=== PATIENT | male | born 1970 | race Caucasian/White ===

== ENCOUNTER 2020-12-30 17:07 | Emergency (ER) | payer OTHER ==
[2020-12-30 17:18] VITALS: PULSE 96
[2020-12-30] MEDS ORDERED: HYDROcodone/APAP 5-325MG 1 EACH TAB PO STA (17:35)
--- NOTE | 2020-12-30 17:53 | ED ---
General Adult HPI - General Chief complaint: Shortness of Breath Stated complaint: Flipped tractor, broken ribs Time Seen by Provider: 12/30/20 17:22 Source: patient Mode of arrival: wheelchair Limitations: no limitations - History of Present Illness Initial comments: Patient is a 50-year-old male presenting to the emergency Department with complaints of left-sided rib pain since yesterday. Patient states he was driving a large tractor when it started to tip over so patient jumped out of the tractor, landing on a hard rebeca surface. He states the drop was about 10-15 feet down. He states this happened yesterday. He continues to have left-sided rib pain, diffusely gets worse and yesterday so came in for evaluation. He states he had some bruising noted to the outside of his left hip where he landed however that does not hurt anymore. He is able to walk without difficulty. He did not hit his head, is not on blood thinners. He denies any abdominal pain, no nausea or vomiting. He states it does hurt to cough or laugh. He has no further complaints. - Related Data Home Medications Medication Instructions Recorded Confirmed Losartan Potassium [Cozaar] 100 mg PO DAILY 12/30/20 12/30/20 Metoprolol Succinate (ER) [Toprol 50 mg PO DAILY 12/30/20 12/30/20 Xl] Simvastatin [Zocor] 20 mg PO HS 12/30/20 12/30/20 amLODIPine [Norvasc] 10 mg PO DAILY 12/30/20 12/30/20 hydroCHLOROthiazide 25 mg PO DAILY 12/30/20 12/30/20 metFORMIN HCL [Glucophage] 500 mg PO BID 12/30/20 12/30/20 Previous Rx's Medication Instructions Recorded HYDROcodone/APAP 5-325MG [[place] 1 tab PO Q6HR PRN 3 Days #12 tab 12/30/20 5-325] Allergies Allergy/AdvReac Type Severity Reaction Status Date / Time No Known Allergies Allergy Verified 12/30/20 18:32 Review of Systems ROS Statement: Those systems with pertinent positive or pertinent negative responses have been documented in the HPI. ROS Other: All systems not noted in ROS Statement are negative. Past Medical History Past Medical History: Diabetes Mellitus, Hyperlipidemia, Hypertension History of Any Multi-Drug Resistant Organisms: None Reported Past Surgical History: No Surgical Hx Reported Past Psychological History: No Psychological Hx Reported Smoking Status: Former smoker Past Alcohol Use History: Occasional Past Drug Use History: Marijuana General Exam - General Exam Comments Initial Comments: GENERAL: Patient is well-developed and well-nourished. Patient is nontoxic and in no acute distress. HEAD: Atraumatic, normocephalic. EYES: Pupils equal round and reactive to light, extraocular movements intact, sclera anicteric, conjunctiva are normal. Eyelids were unremarkable. ENT: Moist mucous membranes. NECK: Normal range of motion, supple without lymphadenopathy or JVD. LUNGS: Unlabored respirations. Breath sounds clear to auscultation bilaterally and equal. No wheezes rales or rhonchi. HEART: Regular rate and rhythm without murmurs, rubs or gallops. ABDOMEN: Soft, nontender, normoactive bowel sounds. No guarding, no rebound. No masses appreciated. : Deferred MUSCULOSKELETAL: Normal extremities with adequate strength and normal range of motion, no pitting or edema. No clubbing or cyanosis. Pain to palpation of the left side of the lateral, anterior ribs, there is some mild bruising present. No crepitus. NEUROLOGICAL: Patient is alert and oriented x 3. Normal speech, normal gait. PSYCH: Normal mood, normal affect. SKIN: Warm, Dry, normal turgor. Bruise noted to the lateral aspect of the left hip. Limitations: no limitations Course Vital Signs 12/30/20 17:13 Temperature 98.6 F Pulse Rate 96 Respiratory 18 Rate Blood Pressure 190/111 O2 Sat by Pulse 96 Oximetry Medical Decision Making - Medical Decision Making Patient is a 50-year-old male here for left-sided rib pain after he jumped out of his tractor yesterday as it was tipping over. He did not hit his head, is on blood thinners. His only complaint is left-sided rib pain. This happened yesterday. Vital signs are stable. X-rays of the left ribs and chest reveal a nondisplaced left eighth rib fracture, no other acute findings. Patient was given pain medicine here in the ER. I discussed the patient's findings. He will sent home with incentive spirometry, to help prevent pneumonia. I will also give him a short prescription for [place] for pain relief. I recommended alternating this with Motrin as well. He is stable for discharge and he is in agreement this plan of care. Return parameters were discussed with him and he verbalized understanding. Case discussed with Dr. Henry. Disposition Clinical Impression: Fall, Left rib fracture Disposition: HOME SELF-CARE Condition: Stable Instructions (If sedation given, give patient instructions): Rib Fracture (ED) Additional Instructions: Please return to the Emergency Department if symptoms worsen or any other concerns. Use incentive spirometer each hour while you are awake to help prevent pneumonia. Use pillow to brace yourself when having to cough or when having a bowel movement. Recommend alternating between Tylenol and Motrin for pain relief, may take [place] for more severe pain or at nighttime. Follow-up with your primary care as needed. Prescriptions: HYDROcodone/APAP 5-325MG [[place] 5-325] 1 tab PO Q6HR PRN 3 Days #12 tab PRN Reason: Pain Is patient prescribed a controlled substance at d/c from ED?: Yes When asked, does pt state using other controlled substances?: No If prescribed controlled substance>3 days was MAPS reviewed?: Prescribed <3 Days If opioid is for acute pain is fill amount 7 days or less?: Yes If Rx opioid, was Start Talking consent form obtained?: Yes Referrals: Abbey Pickering MD [Primary Care Provider] - 1-2 days Time of Disposition: 18:55
--- NOTE | 2020-12-30 18:43 | XR ---
Result: History: Pain. Comparison: None available. Technique: 4 views of the left ribs with PA chest. Findings: There is nondisplaced fracture of the left eighth rib. The cardiac silhouette is within normal limits for size and appearance. The lungs are clear without evidence of focal consolidation, pleural effusion, pulmonary edema, or pneumothorax. Impression: 1. Left lower rib fracture. 2. No acute cardiopulmonary abnormality.
[2020-12-30 19:12] VITALS: BP 189/98; RESP 20; TEMP 98.2
== END 2020-12-30 19:12 | disposition home or self-care (01) ==
LOC: EC 17:07
DX: S22.32XA Fracture of one rib, left side, initial encounter for closed fracture (principal); E11.9 Type 2 diabetes mellitus without complications; I10 Essential (primary) hypertension; E78.5 Hyperlipidemia, unspecified; F12.90 Cannabis use, unspecified, uncomplicated; Z87.891 Personal history of nicotine dependence; Z79.84 Long term (current) use of oral hypoglycemic drugs; Y30.XXXA Falling, jumping or pushed from a high place, undetermined intent, initial encounter
CPT/HCPCS: 99283

== ENCOUNTER 2021-03-17 18:13 | Inpatient (IN) | payer OTHER ==
[2021-03-17] MEDS ORDERED: IBUPROFEN 600 MG TAB PO STA (19:24)
[2021-03-17] MEDS ORDERED: ACETAMINOPHEN TAB 325 MG TAB PO STA (19:24)
[2021-03-17 19:57] LABS: Basophils % (A) 0 %; Eosinophils % (A) 0 %; HCT 39.9 % (39.0-53.0); HGB 13.7 gm/dL (13.0-17.5); Lymphocytes # (A) 0.7 k/uL (1.0-4.8); Lymphocytes % (A) 9 %; MCH 29.8 pg (25.0-35.0); MCHC 34.4 g/dL (31.0-37.0); MCV 86.7 fL (80.0-100.0); Mean Platelet Volume 7.1; Monocytes # (A) 0.6 k/uL (0-1.0); Monocytes % (A) 9 %; Neutrophils # (A) 5.6 k/uL (1.3-7.7); Neutrophils % (A) 79 %; Platelet Count 200 k/uL (150-450); RBC 4.61 m/uL (4.30-5.90); RDW 11.9 % (11.5-15.5); WBC 7.1 k/uL (3.8-10.6)
--- NOTE | 2021-03-17 20:00 | XR ---
EXAMINATION TYPE: XR chest 2V DATE OF EXAM: 03/17/2021 COMPARISON: 12/30/2020 HISTORY: Fever TECHNIQUE: FINDINGS: There is moderate patchy bilateral interstitial and airspace pneumonia. Heart size is khadijah l. There is no pleural effusion. IMPRESSION: Moderate bilateral pneumonia that is essentially new compared to old exam.
[2021-03-17 20:18] LABS: Potassium 3.5 mmol/L (3.5-5.1)
[2021-03-17 20:21] LABS: ALT 74 U/L (4-49); AST 105 U/L (17-59); African American GFR (CKD) >90 (>60 ml/min/1.73 sqM); Albumin 3.5 g/dL (3.5-5.0); Alkaline Phosphatase 82 U/L (38-126); Anion Gap 9 mmol/L; Blood Urea Nitrogen 11 mg/dL (9-20); Calcium 8.5 mg/dL (8.4-10.2); Carbon Dioxide 25 mmol/L (22-30); Chloride 97 mmol/L (98-107); Glucose 119 mg/dL (74-99); LDH 1328 U/L (313-618); Non-African American GFR(CKD) >90 (>60 ml/min/1.73 sqM); Sodium 131 mmol/L (137-145); Total Bilirubin 0.5 mg/dL (0.2-1.3); Total Protein 6.7 g/dL (6.3-8.2)
[2021-03-17 20:36] LABS: C Reactive Protein 22.4 mg/dL (<1.0)
[2021-03-17] MEDS ORDERED: NALOXONE 0.4 MG/ML 1 ML VIAL IV PRN (21:18)
[2021-03-17] MEDS ORDERED: ACETAMINOPHEN TAB 325 MG TAB PO PRN (21:18)
--- NOTE | 2021-03-17 21:18 | ED ---
General Adult HPI - General Chief complaint: Fever Stated complaint: Fever Time Seen by Provider: 03/17/21 19:00 Source: patient, RN notes reviewed Mode of arrival: ambulatory Limitations: no limitations - History of Present Illness Initial comments: Patient is a 50-year-old male that presents to the emergency department complaining of fever and Covid like symptoms for the past 2 weeks. Patient notes he came into the emergency room due to decreased oxygen at home. Patient notes that otherwise he feels well and is in no apparent distress or pain. Patient denied any chest pain shortness of breath headache nausea vomiting diarrhea constipation fatigue chills. - Related Data Home Medications Medication Instructions Recorded Confirmed Losartan Potassium [Cozaar] 100 mg PO DAILY 12/30/20 12/30/20 Metoprolol Succinate (ER) [Toprol 50 mg PO DAILY 12/30/20 12/30/20 Xl] Simvastatin [Zocor] 20 mg PO HS 12/30/20 12/30/20 amLODIPine [Norvasc] 10 mg PO DAILY 12/30/20 12/30/20 hydroCHLOROthiazide 25 mg PO DAILY 12/30/20 12/30/20 metFORMIN HCL [Glucophage] 500 mg PO BID 12/30/20 12/30/20 Previous Rx's Medication Instructions Recorded HYDROcodone/APAP 5-325MG [[place] 1 tab PO Q6HR PRN 3 Days #12 tab 12/30/20 5-325] Allergies Allergy/AdvReac Type Severity Reaction Status Date / Time No Known Allergies Allergy Verified 03/17/21 18:28 Review of Systems ROS Statement: Those systems with pertinent positive or pertinent negative responses have been documented in the HPI. ROS Other: All systems not noted in ROS Statement are negative. Past Medical History Past Medical History: Diabetes Mellitus, Hyperlipidemia, Hypertension History of Any Multi-Drug Resistant Organisms: None Reported Past Surgical History: No Surgical Hx Reported Past Psychological History: No Psychological Hx Reported Smoking Status: Former smoker Past Alcohol Use History: Occasional Past Drug Use History: Marijuana General Exam Limitations: no limitations General appearance: alert, in no apparent distress, obese Head exam: Present: atraumatic, normocephalic, normal inspection Eye exam: Present: normal appearance, PERRL, EOMI. Absent: scleral icterus, conjunctival injection, periorbital swelling ENT exam: Present: normal exam, mucous membranes moist Neck exam: Present: normal inspection. Absent: tenderness, meningismus, lymphadenopathy Respiratory exam: Present: normal lung sounds bilaterally. Absent: respiratory distress, wheezes, rales, rhonchi, stridor Cardiovascular Exam: Present: regular rate, normal rhythm, normal heart sounds. Absent: systolic murmur, diastolic murmur, rubs, gallop, clicks Extremities exam: Present: normal inspection, full ROM, normal capillary refill. Absent: tenderness, pedal edema, joint swelling, calf tenderness Neurological exam: Present: alert, oriented X3 Psychiatric exam: Present: normal affect, normal mood Skin exam: Present: warm, dry, intact, normal color. Absent: rash Course Vital Signs 03/17/21 03/17/21 03/17/21 18:28 19:02 19:03 Temperature 101.4 F H 101.3 F H Pulse Rate 116 H 113 H Respiratory 20 19 18 Rate Blood Pressure 174/85 187/90 O2 Sat by Pulse 95 90 L Oximetry 03/17/21 19:54 Temperature Pulse Rate 111 H Respiratory 20 Rate Blood Pressure O2 Sat by Pulse 95 Oximetry Medical Decision Making - Medical Decision Making 50-year-old male with fever and low oxygen saturation at 89-90% on room air. Covid test, labs, chest x-ray, oxygen via nasal cannula at 3 L/m ordered. Covid test positive Labs show elevated CRP and lactase dehydrogenase. Patient oxygen saturation on 3 L/m is 95%. Chest x-ray shows moderate bilateral pneumonia. Case discussed with Dr. Velasquez, patient will be admitted. Dr. Alejandro was consult that and will accept the admit with pulmonology on consult. - Lab Data Result diagrams: 03/17/21 19:45 03/17/21 19:45 Lab Results 03/17/21 03/17/21 03/17/21 Range/Units 18:30 19:45 19:45 WBC 7.1 (3.8-10.6) k/uL RBC 4.61 (4.30-5.90) m/uL Hgb 13.7 (13.0-17.5) gm/dL Hct 39.9 (39.0-53.0) % MCV 86.7 (80.0-100.0) fL MCH 29.8 (25.0-35.0) pg MCHC 34.4 (31.0-37.0) g/dL RDW 11.9 (11.5-15.5) % Plt Count 200 (150-450) k/uL MPV 7.1 Neutrophils % 79 % Lymphocytes % 9 % Monocytes % 9 % Eosinophils % 0 % Basophils % 0 % Neutrophils # 5.6 (1.3-7.7) k/uL Lymphocytes # 0.7 L (1.0-4.8) k/uL Monocytes # 0.6 (0-1.0) k/uL Eosinophils # 0.0 (0-0.7) k/uL Basophils # 0.0 (0-0.2) k/uL Sodium 131 L (137-145) mmol/L Potassium 3.5 (3.5-5.1) mmol/L Chloride 97 L (98-107) mmol/L Carbon Dioxide 25 (22-30) mmol/L Anion Gap 9 mmol/L BUN 11 (9-20) mg/dL Creatinine 0.63 L (0.66-1.25) mg/dL Est GFR (CKD-EPI)AfAm >90 (>60 ml/min/1.73 sqM) Est GFR (CKD-EPI)NonAf >90 (>60 ml/min/1.73 sqM) Glucose 119 H (74-99) mg/dL Calcium 8.5 (8.4-10.2) mg/dL Total Bilirubin 0.5 (0.2-1.3) mg/dL AST 105 H (17-59) U/L ALT 74 H (4-49) U/L Alkaline Phosphatase 82 (38-126) U/L Lactate Dehydrogenase 1328 H (313-618) U/L C-Reactive Protein 22.4 H (<1.0) mg/dL Total Protein 6.7 (6.3-8.2) g/dL Albumin 3.5 (3.5-5.0) g/dL Coronavirus (PCR) Detected A (Not Detectd) - Radiology Data Radiology results: report reviewed, image reviewed Chest x-ray: Moderate bilateral pneumonia that is essentially new compared to old exam. Disposition Clinical Impression: Pneumonia due to COVID-19 virus, Hypoxia Disposition: ADMITTED IP TO THIS HOSP Condition: Stable Is patient prescribed a controlled substance at d/c from ED?: No Referrals: Abbey Pickering MD [Primary Care Provider] - 1-2 days Time of Disposition: 21:17
[2021-03-17] MEDS: SODIUM CHLORIDE 0.9% 1,000 ML IV SCH (22:46)
[2021-03-18] MEDS ORDERED: DEXAMETHASONE SOD PHOSPHATE 10 MG/ML 1 ML VIAL IVP SCH (09:00)
[2021-03-18] MEDS: ENOXAPARIN 40 MG/0.4 ML SYRINGE SQ SCH (09:59)
--- NOTE | 2021-03-18 10:54 | P.CNPUL ---
History of Present Illness Consult date: 03/18/21 Requesting physician: Lavern Alejandro Reason for consult: dyspnea, cough, hypoxemia, pneumonia, abnormal CXR/CT Chief complaint: Shortness of breath. History of present illness: Pulmonary consult dated 03/18/2021. 50-year-old male, with a history of diabetes, hyperlipidemia, and hypertension. The patient is seen in the emergency department, room 24. The patient is on vaccinated. He's been sick for at least 12 days. He tested positive for coronavirus yesterday. The patient came in with complaints of high fevers, fatigue, and shortness of breath. He also had a painful cough. Currently, the patient is on 3 L nasal cannula. He is visibly short of breath, and he is not on any IV fluids. The patient is also a former smoker. White count 7.1, hemoglobin 13.7, hematocrit 39.9, platelet count is normal. Sodium 131, potassium 3.5, chlorides 97, CO2 25, anion gap is 9, BUN 11, creatinine 0.63. Coronavirus testing was positive on the . LDH is 1328. C-reactive protein is 22.4. Chest x-ray shows diffuse bilateral airspace disease consistent with coronavirus pneumonia. Review of Systems REVIEW OF SYSTEMS: CONSTITUTIONAL: Fever, weakness, and fatigue. NEUROLOGIC: [ Negative.] HEENT: [ Negative.] CARDIAC: [Negative.] PULMONARY: Shortness of breath, cough, chest congestion. GI: [Negative.] : [Negative.] RHEUMATOLOGIC: [ Negative.] IMMUNOLOGIC: [ Negative.] ENDOCRINE: [Negative. ] DERMATOLOGIC: [Negative.] Past Medical History Past Medical History: Diabetes Mellitus, Hyperlipidemia, Hypertension History of Any Multi-Drug Resistant Organisms: None Reported Past Surgical History: No Surgical Hx Reported Past Psychological History: No Psychological Hx Reported Smoking Status: Former smoker Past Alcohol Use History: Occasional Past Drug Use History: Marijuana Medications and Allergies Home Medications Medication Instructions Recorded Confirmed Type Losartan Potassium [Cozaar] 100 mg PO DAILY 12/30/20 03/17/21 History Metoprolol Succinate (ER) [Toprol 50 mg PO HS 12/30/20 03/17/21 History Xl] Simvastatin [Zocor] 20 mg PO HS 12/30/20 03/17/21 History amLODIPine [Norvasc] 10 mg PO HS 12/30/20 03/17/21 History hydroCHLOROthiazide 25 mg PO DAILY 12/30/20 03/17/21 History metFORMIN HCL [Glucophage] 500 mg PO BID 12/30/20 03/17/21 History Aspirin EC [Ecotrin Low Dose] 81 mg PO HS 03/17/21 03/17/21 History Multivitamins, Thera [Multivitamin 1 tab PO DAILY 03/17/21 03/17/21 History (formulary)] [place]-3 Fatty Acids/Fish Oil [Fish 1 cap PO DAILY 03/17/21 03/17/21 History Oil 1,000 mg Softgel] Allergies Allergy/AdvReac Type Severity Reaction Status Date / Time No Known Allergies Allergy Verified 03/17/21 21:27 Physical Exam Osteopathic Statement: *. No significant issues noted on an osteopathic structural exam other than those noted in the History and Physical/Consult. Vitals: Vital Signs Temp Pulse Pulse Resp BP BP Pulse Ox 03/18/21 09:23 100.6 F H 100 159/92 95 03/18/21 03:36 97.8 F 98 03/18/21 02:00 99 F 167/90 96 03/17/21 22:44 100.5 F H 98 20 96 03/17/21 19:54 111 H 20 95 03/17/21 19:03 18 03/17/21 19:02 101.3 F H 113 H 19 187/90 90 L 03/17/21 18:28 101.4 F H 116 H 20 174/85 95 Intake and Output 03/17/21 03/18/21 03/18/21 22:59 06:59 14:59 Other: Voiding Method Urinal Urinal # Voids 2 Weight 115.666 kg Mild conversational dyspnea, oriented 3. Patient currently on 3 L nasal cannula. Saturations are 91%. HEENT examination is grossly unremarkable. Neck supple. Full range of motion. No adenopathy thyromegaly or neck vein distention. Cardiovascular examination reveals regular rhythm rate. S1-S2 normal. No S3 or S4. No discernible murmur noted. Heart sounds are distant. Heart rate 100 bpm. Lungs reveal bilateral coarse rhonchi. Bibasilar crackles. Breath sounds equal bilaterally. No wheezes. Abdomen soft bowel sounds are heard. No masses or tenderness. Extremities are intact. No cyanosis clubbing or edema. Skin is without rash or lesion. Neurologic examination is brief but nonfocal. Results - Laboratory Findings CBC and BMP: 03/17/21 19:45 03/17/21 19:45 Abnormal lab findings: Abnormal Labs 03/17/21 03/17/21 03/17/21 18:30 19:45 19:45 Lymphocytes # 0.7 L Sodium 131 L Chloride 97 L Creatinine 0.63 L Glucose 119 H AST 105 H ALT 74 H Lactate Dehydrogenase 1328 H C-Reactive Protein 22.4 H Coronavirus (PCR) Detected A - Diagnostic Findings Chest x-ray: image reviewed Assessment and Plan Assessment: Acute hypoxemic respiratory failure secondary to coronavirus associated pneumonia. History of hypertension. History of hyperlipidemia. History of diabetes mellitus. Prior history of tobacco use. Plan: Plan dated 03/18/2021. Based on the fact that the patient has been sick for 12 days, he's only a candidate for Lovenox, Decadron, and vitamins. The Lovenox will be 40 mg subcu daily and the Decadron 6 mg a day daily. In addition, the patient will get vitamin C, vitamin D3, and zinc. We will check a d-dimer. If it is elevated, we will plan on doing a CT to rule out pulmonary embolism. Prognosis is guarded. The patient has actually worsened over the 12 days that he has not been feeling well. Everything was explained to the patient. We will continue to follow and make recommendations where appropriate. Time with Patient: Greater than 30
--- NOTE | 2021-03-18 11:23 | P.HPIM ---
History of Present Illness This is a pleasant 50 years old male with past medical history of Diabetes Mellitus, Hyperlipidemia, Hypertension. He is patient of Dr. Pickering. Presents because of comment infection and hypoxia. Patient states that he's been diagnosed with covid on 03/06 where he had cough and fever with his . And he is been monitoring his oxygen yesterday his oxygen was running low at 92- 93 as he states so his advised him to come to emergency room. He denies any chest pain. He has some diarrhea started this morning which is closed rather than worry. But no abdominal pain or vomiting. No headache or weakness. He denies smoking, alcohol or illicit drugs. He had low-grade temperature of 100.6 this morning. Trace of vitals stable. Labs showing mild lymphopenia with 0.7. Sodium slightly low at 131. Creatinine 0.3. Liver enzymes slightly elevated with AST 105 and ALT 74. While bilirubin is normal 0.5. Coronavirus: Detected Chest x-ray: Moderate bilateral pneumonia Review of Systems CONSTITUTIONAL: No fever, no malaise, no fatigue. HEENT: No recent visual problems or hearing problems. Denied any sore throat. CARDIOVASCULAR: No orthopnea, PND, no palpitations, no syncope. PULMONARY: No chest wall tenderness, no hemoptysis. GASTROINTESTINAL: No diarrhea, no nausea, no vomiting, no abdominal pain. Normoactive bowel sounds. NEUROLOGICAL: No headaches, no weakness, no numbness. HEMATOLOGICAL: Denies any bleeding or petechiae. GENITOURINARY: Denies any burning micturition, frequency, or urgency. MUSCULOSKELETAL/RHEUMATOLOGICAL: Denies any joint pain, swelling, or any muscle pain. ENDOCRINE: Denies any polyuria or polydipsia. Past Medical History Past Medical History: Diabetes Mellitus, Hyperlipidemia, Hypertension History of Any Multi-Drug Resistant Organisms: None Reported Past Surgical History: No Surgical Hx Reported Past Psychological History: No Psychological Hx Reported Smoking Status: Former smoker Past Alcohol Use History: Occasional Past Drug Use History: Marijuana Medications and Allergies Home Medications Medication Instructions Recorded Confirmed Type Losartan Potassium [Cozaar] 100 mg PO DAILY 12/30/20 03/17/21 History Metoprolol Succinate (ER) [Toprol 50 mg PO HS 12/30/20 03/17/21 History Xl] Simvastatin [Zocor] 20 mg PO HS 12/30/20 03/17/21 History amLODIPine [Norvasc] 10 mg PO HS 12/30/20 03/17/21 History hydroCHLOROthiazide 25 mg PO DAILY 12/30/20 03/17/21 History metFORMIN HCL [Glucophage] 500 mg PO BID 12/30/20 03/17/21 History Aspirin EC [Ecotrin Low Dose] 81 mg PO HS 03/17/21 03/17/21 History Multivitamins, Thera [Multivitamin 1 tab PO DAILY 03/17/21 03/17/21 History (formulary)] [place]-3 Fatty Acids/Fish Oil [Fish 1 cap PO DAILY 03/17/21 03/17/21 History Oil 1,000 mg Softgel] Allergies Allergy/AdvReac Type Severity Reaction Status Date / Time No Known Allergies Allergy Verified 03/17/21 21:27 Physical Exam Vitals: Vital Signs Temp Pulse Pulse Resp BP BP Pulse Ox 03/18/21 09:23 100.6 F H 100 159/92 95 03/18/21 03:36 97.8 F 98 03/18/21 02:00 99 F 167/90 96 03/17/21 22:44 100.5 F H 98 20 96 03/17/21 19:54 111 H 20 95 03/17/21 19:03 18 03/17/21 19:02 101.3 F H 113 H 19 187/90 90 L 03/17/21 18:28 101.4 F H 116 H 20 174/85 95 Intake and Output 03/17/21 03/18/21 03/18/21 22:59 06:59 14:59 Other: Voiding Method Urinal Urinal # Voids 2 Weight 115.666 kg -GENERAL: The patient is alert and oriented x3, not in any acute distress. Morbidly obese HEENT: Pupils are round and equally reacting to light. EOMI. No scleral icterus. No conjunctival pallor. Normocephalic, atraumatic. No pharyngeal erythema. No thyromegaly. CARDIOVASCULAR: S1 and S2 present. No murmurs, rubs, or gallops. PULMONARY: Chest is clear to auscultation, no wheezing or crackles. ABDOMEN: Soft, nontender, nondistended, normoactive bowel sounds. No palpable organomegaly. MUSCULOSKELETAL: No joint swelling or deformity. EXTREMITIES: No cyanosis, clubbing, or pedal edema. NEUROLOGICAL: Gross neurological examination did not reveal any focal deficits. SKIN: No rashes. No petechiae Results CBC & Chem 7: 03/17/21 19:45 03/17/21 19:45 Labs: Abnormal Lab Results - Last 24 Hours (Table) 03/17/21 03/17/21 03/17/21 Range/Units 18:30 19:45 19:45 Lymphocytes # 0.7 L (1.0-4.8) k/uL Sodium 131 L (137-145) mmol/L Chloride 97 L (98-107) mmol/L Creatinine 0.63 L (0.66-1.25) mg/dL Glucose 119 H (74-99) mg/dL AST 105 H (17-59) U/L ALT 74 H (4-49) U/L Lactate Dehydrogenase 1328 H (313-618) U/L C-Reactive Protein 22.4 H (<1.0) mg/dL Coronavirus (PCR) Detected A (Not Detectd) Thrombosis Risk Factor Assmnt - Choose All That Apply Any of the Below Risk Factors Present?: Yes Each Factor Represents 1 point: Age 41-60 years, Obesity (BMI >25) Thrombosis Risk Factor Assessment Total Risk Factor Score: 2 Thrombosis Risk Factor Assessment Level: Low Risk Assessment and Plan Assessment: Covid bilateral pneumonia Multiple hypoxic respiratory failure Elevated liver enzymes mostly likely secondary to Covid infection Diabetes mellitus Hypertension Hyperlipidemia Morbid obesity with BMI of 42.4 Plan: This is a pleasant 50 years old male who presents with covid pneumonia Continue with dexamethasone Continue with vitamin C, vitamin D and zinc Pulmonary consult Continue with normal saline Labs and medication were reviewed.. Continue same treatment. Continue with symptomatic treatment. Resume home medication. Monitor lytes and vitals. DVT and GI prophylaxis. Further recommendations depends on the clinical course of the patient DVT prophylaxis: Subcutaneous Lovenox GI Prophylaxis: Pepcid Prognosis is guarded
[2021-03-18] MEDS: LOSARTAN 50 MG TAB PO SCH (16:06)
[2021-03-18] MEDS: METOPROLOL SUCCINATE (ER) 50 MG TAB.ER.24H PO SCH (21:42)
[2021-03-18] MEDS: ASPIRIN 81 MG PO SCH (21:42)
[2021-03-18] MEDS: metFORMIN 500 MG TAB PO SCH (21:42)
[2021-03-18] MEDS: amLODIPine 10 MG TAB PO SCH (21:42)
[2021-03-19] MEDS: SODIUM CHLORIDE 0.9% 1,000 ML IV SCH ×5 (01:19→20:57)
[2021-03-19 07:29] LABS: Glucose,Whole Blood 154 mg/dL (75-99)
--- NOTE | 2021-03-19 08:53 | XR ---
EXAMINATION TYPE: XR chest 1V DATE OF EXAM: 03/19/2021 COMPARISON: Chest x-ray 03/17/2021 HISTORY: Covid pneumonia TECHNIQUE: Single frontal view of the chest is obtained. FINDINGS: Bilateral airspace disease persists. Cardiac mediastinal silhouette is stable. No evident pneumothorax or pleural effusion. Patient is rotated. There are overlying artifacts. Right hemidiaphr agm is elevated. IMPRESSION: Correlate for pneumonia.
[2021-03-19] MEDS: ENOXAPARIN 40 MG/0.4 ML SYRINGE SQ SCH (10:09)
[2021-03-19] MEDS: ASCORBIC ACID 500 MG TAB PO SCH (10:10)
[2021-03-19] MEDS: MULTIVITAMINS, THERA 1 EACH TAB PO SCH (10:10)
[2021-03-19] MEDS: CHOLECALCIFEROL 25 MCG (1000 IU) TABLET PO SCH (10:10)
[2021-03-19] MEDS: metFORMIN 500 MG TAB PO SCH ×2 (10:10→20:53)
[2021-03-19] MEDS: LOSARTAN 50 MG TAB PO SCH (10:10)
[2021-03-19] MEDS: ZINC SULFATE 220 MG CAP PO SCH (12:03)
[2021-03-19] MEDS: dexAMETHasone 2 MG TAB PO SCH (12:03)
[2021-03-19] MEDS: hydroCHLOROthiazide 25 MG TAB PO SCH (12:03)
[2021-03-19 12:06] LABS: Glucose,Whole Blood 129 mg/dL (75-99)
--- NOTE | 2021-03-19 14:51 | P.PN ---
Subjective This is a pleasant 50 years old male with past medical history of Diabetes Mellitus, Hyperlipidemia, Hypertension. He is patient of Dr. Pickering. Presents because of comment infection and hypoxia. Patient states that he's been diagnosed with covid on 03/06 where he had cough and fever with his . And he is been monitoring his oxygen yesterday his oxygen was running low at 92- 93 as he states so his advised him to come to emergency room. He denies any chest pain. He has some diarrhea started this morning which is closed rather than worry. But no abdominal pain or vomiting. No headache or weakness. He denies smoking, alcohol or illicit drugs. He had low-grade temperature of 100.6 this morning. Trace of vitals stable. Labs showing mild lymphopenia with 0.7. Sodium slightly low at 131. Creatinine 0.3. Liver enzymes slightly elevated with AST 105 and ALT 74. While bilirubin is normal 0.5. Coronavirus: Detected Chest x-ray: Moderate bilateral pneumonia 03/19/2021 In sitting in bed, pleasant, no significant respiratory distress. No significant dyspnea. He still on 3 L oxygen via nasal cannula. Glucose is controlled. Repeat chest x-ray showing bilateral pneumonia, it looks to me slightly better but no significant improvement. He remains on dexamethasone, vitamin C, vitamin D, zinc r, Lovenox and Pepcid She will be checked for home oxygen and if he qualify we will side a prescription for oxygen to go home with. Plan discussed with patient and he agrees Objective - Vital Signs Vital signs: Vital Signs Temp 98.1 F 03/19/21 08:00 Pulse 90 03/19/21 08:00 Resp 18 03/19/21 08:00 BP 144/88 03/19/21 08:00 Pulse Ox 96 03/19/21 08:00 Intake & Output 03/18/21 03/19/21 03/19/21 18:59 06:59 18:59 Intake Total 240 Balance 240 Intake: Oral 240 Other: Voiding Method Urinal Toilet Urinal # Voids 2 - Exam -GENERAL: The patient is alert and oriented x3, not in any acute distress. Well morbidly obese HEENT: Pupils are round and equally reacting to light. EOMI. No scleral icterus. No conjunctival pallor. Normocephalic, atraumatic. No pharyngeal erythema. No thyromegaly. CARDIOVASCULAR: S1 and S2 present. No murmurs, rubs, or gallops. PULMONARY: Chest is clear to auscultation, no wheezing or crackles. ABDOMEN: Soft, nontender, nondistended, normoactive bowel sounds. No palpable organomegaly. MUSCULOSKELETAL: No joint swelling or deformity. EXTREMITIES: No cyanosis, clubbing, or pedal edema. NEUROLOGICAL: Gross neurological examination did not reveal any focal deficits. SKIN: No rashes. no petechiae. - Labs CBC & Chem 7: 03/17/21 19:45 03/17/21 19:45 Labs: Abnormal Lab Results - Last 24 Hours (Table) 03/18/21 03/19/21 03/19/21 Range/Units 13:19 07:27 12:05 POC Glucose (mg/dL) 154 H 129 H (75-99) mg/dL Procalcitonin 0.14 H (0.02-0.09) ng/mL Assessment and Plan Assessment: Covid bilateral pneumonia Acute hypoxic respiratory failure Elevated liver enzymes mostly likely secondary to Covid infection Diabetes mellitus Hypertension Hyperlipidemia Morbid obesity with BMI of 42.4 Plan: This is a pleasant 50 years old male who presents with covid pneumonia Continue with dexamethasone Continue with vitamin C, vitamin D and zinc Pulmonary consult Continue with normal saline Labs and medication were reviewed.. Continue same treatment. Continue with symptomatic treatment. Resume home medication. Monitor lytes and vitals. DVT and GI prophylaxis. Further recommendations depends on the clinical course of the patient DVT prophylaxis: Subcutaneous Lovenox GI Prophylaxis: Pepcid Prognosis is guarded
[2021-03-19 17:56] LABS: Glucose,Whole Blood 161 mg/dL (75-99)
--- NOTE | 2021-03-19 18:42 | P.PN ---
Subjective Progress Note Date: 03/19/21 Principal diagnosis: COVID-19 pneumonia 50-year-old male, with a history of diabetes, hyperlipidemia, and hypertension. The patient is seen in the emergency department, room 24. The patient is on vaccinated. He's been sick for at least 12 days. He tested positive for coronavirus yesterday. The patient came in with complaints of high fevers, fatigue, and shortness of breath. He also had a painful cough. Currently, the patient is on 3 L nasal cannula. He is visibly short of breath, and he is not on any IV fluids. The patient is also a former smoker. White count 7.1, hemoglobin 13.7, hematocrit 39.9, platelet count is normal. Sodium 131, potassium 3.5, chlorides 97, CO2 25, anion gap is 9, BUN 11, creatinine 0.63. Coronavirus testing was positive on the . LDH is 1328. C-reactive protein is 22.4. Chest x-ray shows diffuse bilateral airspace disease consistent with coronavirus pneumonia. The patient is seen today 03/19/2021 in follow-up on the regular medical floor. He is currently sitting up at bedside. Awake and alert in no acute distress. Feeling quite a bit better today. No fevers. Less short of breath. He is maintaining good O2 saturations in the 90s on 3 L/m per nasal cannula. He is afebrile. Hemodynamically stable. All of chest x-ray continues to revealed bilateral airspace disease. Right hemidiaphragm is elevated. Glucose 161. He remains on Decadron, Lovenox, vitamin supplements. D-dimer 0.49. Pro calcitonin 0.14 Objective - Vital Signs Vital signs: Vital Signs Temp 98.0 F 03/19/21 15:00 Pulse 81 03/19/21 15:00 Resp 16 03/19/21 15:00 BP 135/82 03/19/21 15:00 Pulse Ox 95 03/19/21 15:28 Intake & Output 03/18/21 03/19/21 03/19/21 18:59 06:59 18:59 Intake Total 240 Balance 240 Intake: Oral 240 Other: Voiding Method Urinal Toilet Urinal # Voids 2 3 - Exam GENERAL EXAM: Alert, obese 50-year-old gentleman, on 3 L nasal cannula, comfortable in no apparent distress. HEAD: Normocephalic. EYES: Normal reaction of pupils, equal size. NOSE: Clear with pink turbinates. THROAT: No erythema or exudates. NECK: No masses, no JVD. CHEST: No chest wall deformity. LUNGS: Equal air entry with few scattered rhonchi. CVS: S1 and S2 normal with no audible murmur, regular rhythm. ABDOMEN: No hepatosplenomegaly, normal bowel sounds, no guarding or rigidity. SPINE: No scoliosis or deformity SKIN: No rashes CENTRAL NERVOUS SYSTEM: No focal deficits, tone is normal in all 4 extremities. EXTREMITIES: There is no peripheral edema. No clubbing, no cyanosis. P eripheral pulses are intact. - Labs CBC & Chem 7: 03/17/21 19:45 03/17/21 19:45 Labs: Abnormal Lab Results - Last 24 Hours (Table) 03/19/21 03/19/21 03/19/21 Range/Units 07:27 12:05 17:55 POC Glucose (mg/dL) 154 H 129 H 161 H (75-99) mg/dL Assessment and Plan Assessment: 1 Acute hypoxemic respiratory failure secondary to coronavirus associated pneumonia. Not vaccinated. Outside the window for Remdesivir. 2 History of hypertension. 3 History of hyperlipidemia. 4 History of diabetes mellitus. 5 Prior history of tobacco use. Plan: The patient was seen and evaluated by Dr. Garnica Currently stable from the pulmonary standpoint Titrate the FiO2 as tolerated Continue Lovenox, Decadron, vitamin supplement We will continue to follow I, the cosigning physician, performed a history & physical examination of the patient. Lungs sounds bilateral scattered rhonchi. Maintaining good O2 saturations in the 90s on 3 L/m per nasal cannula. I discussed the assessment and plan of care with my nurse practitioner, Cammie Montanez. I attest to the above n ote as dictated by her.
[2021-03-19] MEDS ORDERED: CALCIUM CARBONATE 500 MG CHEWABLE PO PRN (19:19)
[2021-03-19 20:20] LABS: Glucose,Whole Blood 248 mg/dL (75-99)
[2021-03-19] MEDS: amLODIPine 10 MG TAB PO SCH (20:53)
[2021-03-19] MEDS: ASPIRIN 81 MG PO SCH (20:53)
[2021-03-19] MEDS: METOPROLOL SUCCINATE (ER) 50 MG TAB.ER.24H PO SCH (20:53)
[2021-03-20] MEDS: SODIUM CHLORIDE 0.9% 1,000 ML IV SCH ×2 (06:26→16:06)
[2021-03-20 08:14] LABS: Glucose,Whole Blood 130 mg/dL (75-99)
[2021-03-20 08:18] VITALS: RESP 18
[2021-03-20] MEDS: MULTIVITAMINS, THERA 1 EACH TAB PO SCH (08:25)
[2021-03-20] MEDS: ASCORBIC ACID 500 MG TAB PO SCH (08:26)
[2021-03-20] MEDS: ENOXAPARIN 40 MG/0.4 ML SYRINGE SQ SCH (08:26)
[2021-03-20] MEDS: dexAMETHasone 2 MG TAB PO SCH (08:26)
[2021-03-20] MEDS: LOSARTAN 50 MG TAB PO SCH (08:26)
[2021-03-20] MEDS: metFORMIN 500 MG TAB PO SCH (08:26)
[2021-03-20] MEDS: CHOLECALCIFEROL 25 MCG (1000 IU) TABLET PO SCH (08:26)
[2021-03-20] MEDS: hydroCHLOROthiazide 25 MG TAB PO SCH (08:30)
[2021-03-20] MEDS: ZINC SULFATE 220 MG CAP PO SCH (08:30)
[2021-03-20 12:15] LABS: Glucose,Whole Blood 117 mg/dL (75-99)
[2021-03-20 14:53] VITALS: BP 154/101; PULSE 78; TEMP 98.2
--- NOTE | 2021-03-20 16:19 | P.PN ---
Subjective Progress Note Date: 03/20/21 Principal diagnosis: COVID-19 pneumonia 50-year-old male, with a history of diabetes, hyperlipidemia, and hypertension. The patient is seen in the emergency department, room 24. The patient is on vaccinated. He's been sick for at least 12 days. He tested positive for coronavirus yesterday. The patient came in with complaints of high fevers, fatigue, and shortness of breath. He also had a painful cough. Currently, the patient is on 3 L nasal cannula. He is visibly short of breath, and he is not on any IV fluids. The patient is also a former smoker. White count 7.1, hemoglobin 13.7, hematocrit 39.9, platelet count is normal. Sodium 131, potassium 3.5, chlorides 97, CO2 25, anion gap is 9, BUN 11, creatinine 0.63. Coronavirus testing was positive on the . LDH is 1328. C-reactive protein is 22.4. Chest x-ray shows diffuse bilateral airspace disease consistent with coronavirus pneumonia. The patient is seen today 03/19/2021 in follow-up on the regular medical floor. He is currently sitting up at bedside. Awake and alert in no acute distress. Feeling quite a bit better today. No fevers. Less short of breath. He is maintaining good O2 saturations in the 90s on 3 L/m per nasal cannula. He is afebrile. Hemodynamically stable. All of chest x-ray continues to revealed bilateral airspace disease. Right hemidiaphragm is elevated. Glucose 161. He remains on Decadron, Lovenox, vitamin supplements. D-dimer 0.49. Pro calcitonin 0.14 Patient is seen today 03/20/2021 in follow-up on the regular medical floor. He is currently sitting up at the bedside. Awake and alert in no acute distress. Feeling quite a bit better. Feeling nearly back to his baseline. He was ambulating in the hallway with O2 saturations staying at 90%. He is hoping to go home. No worsening shortness of breath, cough or congestion. Glucose 117. His been maintained on Decadron, Lovenox, vitamin supplements. Objective - Vital Signs Vital signs: Vital Signs Temp 98.2 F 03/20/21 14:00 Pulse 78 03/20/21 14:00 Resp 18 03/20/21 14:00 BP 154/101 03/20/21 14:00 Pulse Ox 92 L 03/20/21 14:00 Intake & Output 03/19/21 03/20/21 03/20/21 18:59 06:59 18:59 Intake Total 240 1700 480 Balance 240 1700 480 Intake: Intake, IV Titration 1400 Amount Sodium Chloride 0.9% 1, 1400 000 ml @ 130 mls/hr IV . [id number] [facility] Rx#:[id number] Oral 240 300 480 Other: Voiding Method Toilet Toilet Urinal Urinal # Voids 3 2 0 - Exam GENERAL EXAM: Alert, obese 50-year-old gentleman, on room air, comfortable in no apparent distress. HEAD: Normocephalic. EYES: Normal reaction of pupils, equal size. NOSE: Clear with pink turbinates. THROAT: No erythema or exudates. NECK: No masses, no JVD. CHEST: No chest wall deformity. LUNGS: Equal air entry with few scattered rhonchi. CVS: S1 and S2 normal with no audible murmur, regular rhythm. ABDOMEN: No hepatosplenomegaly, normal bowel sounds, no guarding or rigidity. SPINE: No scoliosis or deformity SKIN: No rashes CENTRAL NERVOUS SYSTEM: No focal deficits, tone is normal in all 4 extremities. EXTREMITIES: There is no peripheral edema. No clubbing, no cyanosis. Peripheral pulses are intact. - Labs CBC & Chem 7: 03/17/21 19:45 03/17/21 19:45 Labs: Abnormal Lab Results - Last 24 Hours (Table) 03/19/21 03/19/21 03/20/21 Range/Units 17:55 20:19 07:51 POC Glucose (mg/dL) 161 H 248 H 130 H (75-99) mg/dL 03/20/21 Range/Units 12:11 POC Glucose (mg/dL) 117 H (75-99) mg/dL Assessment and Plan Assessment: 1 Acute hypoxemic respiratory failure secondary to coronavirus associated pneumonia. Not vaccinated. Outside the window for Remdesivir. 2 History of hypertension. 3 History of hyperlipidemia. 4 History of diabetes mellitus. 5 Prior history of tobacco use. Plan: The patient was seen and evaluated by Dr. Garnica Cleared for discharge from the pulmonary standpoint Complete a 10 day course of Decadron Continue vitamin supplements Follow-up in the office in 3-4 weeks I, the cosigning physician, performed a history & physical examination of the patient. Lungs sounds bilateral scattered rhonchi. Maintaining good O2 saturations in the 90s on room air. I discussed the assessment and plan of care with my nurse practitioner, Cammie Montanez. I attest to the above note as dictated by her.
--- NOTE | 2021-03-20 23:28 | P.DS ---
Providers Date of admission: 03/17/21 20:13 Attending physician: Lavern Alejandro Consults: 03/17/21 21:18 Consult Physician Urgent Consulting Provider: Kwan Garnica Reason/Comments: covid pneumonia, hypoxia Do you want consulting provider notified?: Yes Primary care physician: Abbey Pickering Hospital Course: Diagnoses: Covid bilateral pneumonia Acute hypoxic respiratory failure Elevated liver enzymes mostly likely secondary to Covid infection Diabetes mellitus Hypertension Hyperlipidemia Morbid obesity with BMI of 42.4 Hospital course: This is a pleasant 50 years old male with past medical history of Diabetes Mellitus, Hyperlipidemia, Hypertension. He is patient of Dr. Pickering. Presents because of covidt infection and hypoxia. Patient states that he's been diagnosed with covid on 03/06 where he had cough and fever with his . And he is been monitoring his oxygen yesterday his oxygen was running low at 92-93 as he states so his advised him to come to emergency room. Patient also has been evaluated by pulmonary service he has been treated with vitamin C, vitamin D and zinc as well as dexamethasone. D-dimer was negative. Patient showed interval improvement and his oxygen saturation improved area of the day of discharge she does not need oxygen even with a surgeon his oxygen drops to 90%, confirmed with pulmonary team that he does not need oxygen upon discharge, patient informed and he agrees. Although oxygen was delivered to his home but he made aware does not need oxygen and he agrees. On the day of discharge she denies any chest pain, no significant dyspnea. No significant coughing. And in urine or bowel habits. No fever. Walking is fine. he Was cleared for discharge by pulmonary service today. Problems and management plan were discussed with the patient and he verbalized understanding and acceptance Patient was found stable and can be discharged home however he needs follow-up as an outpatient. Patient was instructed to follow up with PCP Dr. Pickering within one week and patient agrees Patient also was instructed to follow up with human relations teacher Dr. Bae or Dr. Aranda in 2 weeks and he agrees to call and make appointment. Physical exam Gen: patient is a AAOx3, no distress CVS: S1-S2, RRR, no murmur Lungs: B/L CTA, no wheezing Abdomen: soft, no distention, no tenderness, positive bowel sounds Extremity: no leg edema or induration Time spent more than 35 minutes Patient Condition at Discharge: Stable Plan - Discharge Summary New Discharge Prescriptions: New Zinc Sulfate [Orazinc] 220 mg PO DAILY #30 cap Ascorbic Acid [Vitamin C] 1,000 mg PO DAILY #60 tab Cholecalciferol [Vitamin D3 (25 Mcg = 1000 Iu)] 50 mcg PO DAILY #60 tablet Dexamethasone [Decadron] 6 mg PO DAILY #8 tablet Continue amLODIPine [Norvasc] 10 mg PO HS Simvastatin [Zocor] 20 mg PO HS Aspirin EC [Ecotrin Low Dose] 81 mg PO HS Morrison-3 Fatty Acids/Fish Oil [Fish Oil 1,000 mg Softgel] 1 cap PO DAILY metFORMIN HCL [Glucophage] 500 mg PO BID Metoprolol Succinate (ER) [Toprol XL] 50 mg PO HS Losartan Potassium [Cozaar] 100 mg PO DAILY hydroCHLOROthiazide 25 mg PO DAILY Multivitamins, Thera [Multivitamin (formulary)] 1 tab PO DAILY Discharge Medication List Losartan Potassium [Cozaar] 100 mg PO DAILY 12/30/20 [History] Metoprolol Succinate (ER) [Toprol XL] 50 mg PO HS 12/30/20 [History] Simvastatin [Zocor] 20 mg PO HS 12/30/20 [History] amLODIPine [Norvasc] 10 mg PO HS 12/30/20 [History] hydroCHLOROthiazide 25 mg PO DAILY 12/30/20 [History] metFORMIN HCL [Glucophage] 500 mg PO BID 12/30/20 [History] Aspirin EC [Ecotrin Low Dose] 81 mg PO HS 03/17/21 [History] Multivitamins, Thera [Multivitamin (formulary)] 1 tab PO DAILY 03/17/21 [History] Morrison-3 Fatty Acids/Fish Oil [Fish Oil 1,000 mg Softgel] 1 cap PO DAILY 03/17/21 [History] Ascorbic Acid [Vitamin C] 1,000 mg PO DAILY #60 tab 03/20/21 [Rx] Cholecalciferol [Vitamin D3 (25 Mcg = 1000 Iu)] 50 mcg PO DAILY #60 tablet 03/20/21 [Rx] Dexamethasone [Decadron] 6 mg PO DAILY #8 tablet 03/20/21 [Rx] Zinc Sulfate [Orazinc] 220 mg PO DAILY #30 cap 03/20/21 [Rx] Follow up Appointment(s)/Referral(s): [facility] [NON-STAFF] - 1 Week Kwan Garnica DO [Doctor of Osteopathic Medicine] - 2 Weeks (human relations teacher ) Abbey Pickering MD [Primary Care Provider] - 1-2 days (we recommend to check your liver enzymes with your doctor) Activity/Diet/Wound Care/Special Instructions: low carbohydrate diet activity is restricted till you see your doctor you do NOT need oxygen at home , your oxygen saturation is 90% on room air with exertion Discharge Disposition: HOME SELF-CARE
== END 2021-03-20 16:12 | disposition home or self-care (01) | DRG 177 ==
LOC: EC 18:13 → 4SSUR 20:13 → 6NMEDSUR 03-18 22:00
PROVIDERS: ADMIT Internal Medicine; ATTEND Internal Medicine
DX: U07.1 COVID-19 (principal); J12.82 Pneumonia due to coronavirus disease 2019; J96.01 Acute respiratory failure with hypoxia; Z68.41 Body mass index [BMI] 40.0-44.9, adult; I10 Essential (primary) hypertension; E78.5 Hyperlipidemia, unspecified; Z87.891 Personal history of nicotine dependence; Z79.899 Other long term (current) drug therapy; Z79.84 Long term (current) use of oral hypoglycemic drugs; E66.01 Morbid (severe) obesity due to excess calories; R79.82 Elevated C-reactive protein (CRP); R74.8 Abnormal levels of other serum enzymes; D72.810 Lymphocytopenia; E11.9 Type 2 diabetes mellitus without complications
CPT/HCPCS: 36415; 71045; 71046; 80053; 83615; 84145; 85025; 85379; 86140; 87635; 99285